=== PATIENT | male | born 1970 | race African-American/Black ===

== ENCOUNTER 2016-03-30 18:16 | Emergency (ER) | payer SELFPAY ==
[~2016-03-30] VITALS: Ht 182.9 cm; Wt 120.0 kg
[~2016-03-30 18:16] MED LIST: ASPI325T PO; HYDR12.56 PO; LISI2.5T3 PO; NOVO7030P2 SQ
[2016-03-30 18:19] VITALS: BP 219/104; PULSE 86; RESP 20; TEMP 98.2; O2SAT 96
[2016-03-30] MEDS ORDERED: SODIUM CHLOR 0.9% 1000 ML INJ 1,000 ML IV SCH ×2 (18:44→20:39)
[2016-03-30] MEDS ORDERED: ENALAPRILAT 2.5 MG/2 ML VIAL IV PUSH ONE (18:45)
--- NOTE | 2016-03-30 18:48 | PD ---
HPI Chief Complaint: Diabetic Time Seen by Provider: 18:38 Travel History International Travel<30 days: No Contact w/Intl Traveler<30days: No Traveled to known affect area: No History of Present Illness HPI 46-year-old male with history of insulin-dependent diabetes, hypertension who presents for evaluation of hyperglycemia. The patient reports that he got out of 5 year stay in [place] [facility] in November 2015. Was given a 60 day supply of his 70/30 insulin which he ran out of 2 months ago. He was unable to afford a refill. He reports a blood sugar reading that has progressively worsened over the course of the past 2 months. Initially his blood sugar readings were in the 200 -300 range. It is crampy in the 400-500 range over the past several days. He is experiencing blurred vision since yesterday. He is experiencing polyuria, polydipsia and polyphagia. Denies any headache, chest pain, shortness of breath , abdominal pain, nausea, vomiting, fevers, chills. He has attempted to establish care with a primary care physician as outpatient but he doesn't have any insurance. He has also been attempting to stretch out his blood pressure medications typically taking them every other day because he is about to run out. He has no other complaints. 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) Cancer: No Cardiovascular Problems: No High Cholesterol: No Chemotherapy: No Chest Pain: No Congestive Heart Failure: No COPD: No Cerebrovascular Accident: No Diabetes: Yes Diminished Hearing: No GERD: No Glaucoma: No Genitourinary: No Headaches: Yes (MIGRAINE HEADACHES) Hepatitis: No Hiatal Hernia: No Hypertension: Yes Kidney Stones: No Musculoskeletal: No Neurologic: No Psychiatric: No Reproductive: No Respiratory: No Migraines: No Myocardial Infarction: No Radiation Therapy: No Renal Failure: No Seizures: No Sickle Cell Disease: No Sleep Apnea: No Thyroid Disease: No Ulcer: No PNEUMOCCOCAL Vaccine (Year): 2 Past Surgical History Abdominal Surgery: No AICD: No Appendectomy: No Arteriovenous Shunt: No Cardiac Surgery: No Ear Surgery: No Endocrine Surgery: No Eye Surgery: No Genitourinary Surgery: No Gynecologic Surgery: No Insulin Pump: No Joint Replacement: No Oral Surgery: No Pacemaker: No Thoracic Surgery: No Social History Alcohol Use: No Tobacco Use: Yes (5 CIGARS/DAY) Substance Use: Yes (SMOKED CRACK ALL DAY) Allergies-Medications (Allergen,Severity, Reaction): Coded Allergies: No Known Allergies (Verified , 08/17/11) Reported Meds & Prescriptions Reported Meds & Active Scripts Active Hydrochlorothiazide 25 Mg Tab 25 Mg PO DAILY Lisinopril 10 Mg Tab 10 Mg PO DAILY Metformin (Metformin HCl) 500 Mg Tab 500 Mg PO BIDPC 30 Days With meals Reported Novolin 70-30 Inj (Insulin Human Isoph/Insulin Regular) 1,000 Unit/10 Ml Vial 1 Units SQ Lisinopril 10 Mg Tab 10 Mg PO DAILY Aspirin 325 Mg Tab 325 Mg PO DAILY Review of Systems Except as stated in HPI: all other systems reviewed are Neg Physical Exam Narrative GENERAL: Well-developed well-nourished male in no acute distress SKIN: Warm and dry. HEAD: Atraumatic. Normocephalic. EYES: Pupils equal and round. No scleral icterus. No injection or drainage. Unable to visualize the optic disc bilaterally. ENT: No nasal bleeding or discharge. Mucous membranes pink and moist. NECK: Trachea midline. No JVD. CARDIOVASCULAR: Regular rate and rhythm. No murmur appreciated. RESPIRATORY: No accessory muscle use. Clear to auscultation. Breath sounds equal bilaterally. GASTROINTESTINAL: Abdomen soft, non-tender, nondistended. Hepatic and splenic margins not palpable. MUSCULOSKELETAL: No obvious deformities. No edema. NEUROLOGICAL: Awake and alert. No obvious cranial nerve deficits. Motor grossly within normal limits. Normal speech. PSYCHIATRIC: Appropriate mood and affect; insight and judgment normal. Data Data Last Documented VS Vital Signs Date Time Temp Pulse Resp B/P Pulse Ox O2 Delivery O2 Flow Rate FiO2 03/30/16 19:27 160/87 03/30/16 18:19 98.2 86 20 96 Room Air Orders Complete Blood Count With Diff (03/30/16 18:44) Basic Metabolic Panel (Bmp) (03/30/16 18:44) Enalaprilat Inj (Vasotec Inj) (03/30/16 18:45) Beta Hydroxybutyrate (Acetone) (03/30/16 18:44) Urinalysis - C+S If Indicated (03/30/16 18:44) Sodium Chlor 0.9% 1000 Ml Inj (Ns 1000 M (03/30/16 18:44) Insulin Human Regular Inj (Novolin R Inj (03/30/16 19:45) Sodium Chlor 0.9% 1000 Ml Inj (Ns 1000 M (03/30/16 20:39) Basic Metabolic Panel (Bmp) (03/30/16 21:27) Labs Laboratory Tests Test 03/30/16 03/30/16 18:45 21:45 White Blood Count 8.6 TH/MM3 Red Blood Count 5.73 MIL/MM3 Hemoglobin 14.5 GM/DL Hematocrit 45.8 % Mean Corpuscular Volume 79.9 FL Mean Corpuscular Hemoglobin 25.3 PG Mean Corpuscular Hemoglobin 31.7 % Concent Red Cell Distribution Width 15.2 % Platelet Count 195 TH/MM3 Mean Platelet Volume 9.4 FL Neutrophils (%) (Auto) 58.9 % Lymphocytes (%) (Auto) 34.9 % Monocytes (%) (Auto) 4.0 % Eosinophils (%) (Auto) 1.8 % Basophils (%) (Auto) 0.4 % Neutrophils # (Auto) 5.0 TH/MM3 Lymphocytes # (Auto) 3.0 TH/MM3 Monocytes # (Auto) 0.3 TH/MM3 Eosinophils # (Auto) 0.2 TH/MM3 Basophils # (Auto) 0.0 TH/MM3 CBC Comment DIFF FINAL Differential Comment Urine Color STRAW Urine Turbidity CLEAR Urine pH 7.0 Urine Specific [place] 1.022 Urine Protein NEG mg/dL Urine Glucose (UA) 1000 mg/dL Urine Ketones NEG mg/dL Urine Occult Blood TRACE Urine Nitrite NEG Urine Bilirubin NEG Urine Urobilinogen LESS THAN 2.0 MG/DL Urine Leukocyte Esterase NEG Urine RBC 3 /hpf Microscopic Urinalysis Comment CULT NOT INDICATED Sodium Level 132 MEQ/L 147 MEQ/L Potassium Level 4.9 MEQ/L 4.5 MEQ/L Chloride Level 93 MEQ/L 111 MEQ/L Carbon Dioxide Level 30.0 MEQ/L 29.8 MEQ/L Anion Gap 9 MEQ/L 6 MEQ/L Blood Urea Nitrogen 18 MG/DL 19 MG/DL Creatinine 1.84 MG/DL 1.32 MG/DL Estimat Glomerular Filtration 48 ML/MIN 70 ML/MIN Rate Random Glucose 719 MG/DL 155 MG/DL Calcium Level 9.2 MG/DL 8.2 MG/DL B-Hydroxybutyrate 0.11 MMOL/L [facility] Medical Decision Making Medical Screen Exam Complete: Yes Emergency Medical Condition: Yes Medical Record Reviewed: Yes Interpretation(s) CBC within normal limits Initial BMP BUN 18 creatinine 1.4 glucose 719 normal anion gap normal carbon dioxide Repeat BMP glucose 155, BUN 19, creatinine 1.32 Urinalysis 1000 glucose trace blood otherwise unremarkable Differential Diagnosis Hyperglycemia, DKA, dehydration, electrolyte abnormality Narrative Course 46-year-old male with hyperglycemia, hypertension presents with symptoms consistent with hyperglycemia after running out of his insulin 2 months ago. He is type II diabetic. Physical examination is reassuring. He is hypertensive. He was given a dose of IV enalapril as well as 2 L of IV fluids, insulin bolus with improvement of his blood sugar, blood pressure. No evidence of DKA. Unfortunately the patient cannot currently afford insulin. She also does not currently have a primary care physician. Financial counselor did come and talk to the patient about applying for patient assistance. The patient apparently has never tried any oral hyperglycemic medication as he was started on insulin originally several years ago. Because he cannot currently afford insulin he will be started on metformin. He understands that this was not controlling his blood sugar and he has to follow up with primary care physician as soon as possible and he plans on reaching out to the patient assistance program as soon as possible. He also be given refills of his blood pressure medications. He is stable for discharge. Diagnosis Primary Impression: Hyperglycemia Additional Impression: Hypertension Qualified Code: I10 - Essential hypertension Additional Instructions: Medication as prescribed. Continue to monitor blood sugar on a daily basis he turned will be records. Continue to attempt weight loss with diabetic diet, exercise. Follow-up as soon as possible with your primary care physician as needed further treatment for your diabetes and your hypertension. Return for any emergent medical conditions. Med/Other Pt SpecificInfo: Prescription(s) given Scripts Hydrochlorothiazide 25 Mg Tab25 Mg PO DAILY #30 TAB Ref 0 Prov:Hamida Salmeron MD 03/30/16 Lisinopril 10 Mg Tab10 Mg PO DAILY #30 TAB Ref 0 Prov:Hamida Salmeron MD 03/30/16 Metformin 500 Mg Qni225 Mg PO BIDPC 30 Days Ref 0 With meals Prov:Hamida Salmeron MD 03/30/16 Disposition: DISCHARGE HOME Condition: Stable Rufino Rodriguez Mar 30, 2016 18:48
[2016-03-30 19:27] VITALS: BP 160/87
[2016-03-30 19:35] LABS: BLOOD, URINE TRACE (NEG); GLUCOSE,URINE 1000 mg/dL (NEG); KETONE, URINE NEG (NEG); NITRITE,URINE NEG (NEG)
[2016-03-30 19:36] LABS: COMMENT (UR) CULT NOT INDICATED; CULTURE IF INDICATED CULT NOT INDICATED; URINE COLOR STRAW (YELLW/STRAW)
--- NOTE | 2016-03-30 19:38 | PD ---
Physical Exam Narrative I, Dr. Salmeron, have reviewed the advance practice practitioner's documentation and am in agreement, met with the patient face to face, made the diagnosis, and the medical decision making was done by me. *My assessment and Findings: Patient is a 46 year old male with history of hypertension and DM who comes in because he is out of his medications. He complains of dry mouth and urinary frequency. He denies any chest pain or SOB. Exam shows heart RRR, lungs CTA. Neurologically intact. Data Data Last Documented VS Vital Signs Date Time Temp Pulse Resp B/P Pulse Ox O2 Delivery O2 Flow Rate FiO2 03/30/16 19:27 160/87 03/30/16 18:19 98.2 86 20 96 Room Air Orders Complete Blood Count With Diff (03/30/16 18:44) Basic Metabolic Panel (Bmp) (03/30/16 18:44) Enalaprilat Inj (Vasotec Inj) (03/30/16 18:45) Beta Hydroxybutyrate (Acetone) (03/30/16 18:44) Urinalysis - C+S If Indicated (03/30/16 18:44) Sodium Chlor 0.9% 1000 Ml Inj (Ns 1000 M (03/30/16 18:44) Insulin Human Regular Inj (Novolin R Inj (03/30/16 19:45) Sodium Chlor 0.9% 1000 Ml Inj (Ns 1000 M (03/30/16 20:39) Basic Metabolic Panel (Bmp) (03/30/16 21:27) Labs Laboratory Tests Test 03/30/16 03/30/16 18:45 21:45 White Blood Count 8.6 TH/MM3 Red Blood Count 5.73 MIL/MM3 Hemoglobin 14.5 GM/DL Hematocrit 45.8 % Mean Corpuscular Volume 79.9 FL Mean Corpuscular Hemoglobin 25.3 PG Mean Corpuscular Hemoglobin 31.7 % Concent Red Cell Distribution Width 15.2 % Platelet Count 195 TH/MM3 Mean Platelet Volume 9.4 FL Neutrophils (%) (Auto) 58.9 % Lymphocytes (%) (Auto) 34.9 % Monocytes (%) (Auto) 4.0 % Eosinophils (%) (Auto) 1.8 % Basophils (%) (Auto) 0.4 % Neutrophils # (Auto) 5.0 TH/MM3 Lymphocytes # (Auto) 3.0 TH/MM3 Monocytes # (Auto) 0.3 TH/MM3 Eosinophils # (Auto) 0.2 TH/MM3 Basophils # (Auto) 0.0 TH/MM3 CBC Comment DIFF FINAL Differential Comment Urine Color STRAW Urine Turbidity CLEAR Urine pH 7.0 Urine Specific [place] 1.022 Urine Protein NEG mg/dL Urine Glucose (UA) 1000 mg/dL Urine Ketones NEG mg/dL Urine Occult Blood TRACE Urine Nitrite NEG Urine Bilirubin NEG Urine Urobilinogen LESS THAN 2.0 MG/DL Urine Leukocyte Esterase NEG Urine RBC 3 /hpf Microscopic Urinalysis Comment CULT NOT INDICATED Sodium Level 132 MEQ/L 147 MEQ/L Potassium Level 4.9 MEQ/L 4.5 MEQ/L Chloride Level 93 MEQ/L 111 MEQ/L Carbon Dioxide Level 30.0 MEQ/L 29.8 MEQ/L Anion Gap 9 MEQ/L 6 MEQ/L Blood Urea Nitrogen 18 MG/DL 19 MG/DL Creatinine 1.84 MG/DL 1.32 MG/DL Estimat Glomerular Filtration 48 ML/MIN 70 ML/MIN Rate Random Glucose 719 MG/DL 155 MG/DL Calcium Level 9.2 MG/DL 8.2 MG/DL B-Hydroxybutyrate 0.11 MMOL/L [facility] Supervised Visit with KARO: Yes Narrative Course Patient given IVF, insulin, blood pressure medication. His glucose improved, blood pressure improved. Patient had no elevation in AG, no signs of DKA. He has no chest pain or cardiac complaints. Patient given information for patient assistance. Given prescriptions for his BP medications which are free at [facility]. Given a prescription for Metformin as this is also free at [facility]. Advised to fill out information for patient assistance and encouraged to follow up in the community clinic. Diagnosis Primary Impression: Hyperglycemia Additional Impression: Hypertension Qualified Code: I10 - Essential hypertension Scripts Hydrochlorothiazide 25 Mg Tab25 Mg PO DAILY #30 TAB Ref 0 Prov:Hamida Salmeron MD 03/30/16 Lisinopril 10 Mg Tab10 Mg PO DAILY #30 TAB Ref 0 Prov:Hamida Salmeron MD 03/30/16 Metformin 500 Mg Pvd800 Mg PO BIDPC 30 Days Ref 0 With meals Prov:Hamida Salmeron MD 03/30/16 Hamida Salmeron MD Mar 30, 2016 19:38
[2016-03-30 19:42] LABS: BASOPHIL % 0.4 % (0.0-2.0); EOSINOPHIL # 0.2 TH/MM3 (0-0.4); EOSINOPHIL % 1.8 % (0.0-4.0); HEMATOCRIT 45.8 % (39.0-51.0); HEMO FLAGS DIFF FINAL; LYMPH % 34.9 % (9.0-44.0); MEAN CELL VOLUME 79.9 FL (80.0-100.0); MEAN CORPUSCULAR HEMOGLOBIN 25.3 PG (27.0-34.0); MEAN CORPUSCULAR HGB CONC 31.7 % (32.0-36.0); NEUT % 58.9 % (16.0-70.0); PLATELET COUNT 195 TH/MM3 (150-450); RED BLOOD COUNT 5.73 MIL/MM3 (4.50-5.90); RED CELL DISTRIBUTION WIDTH 15.2 % (11.6-17.2); WHITE BLOOD COUNT 8.6 TH/MM3 (4.0-11.0)
[2016-03-30] MEDS ORDERED: INSULIN HUMAN REGULAR 1,000 UNITS/10 ML VIAL IV PUSH ONE (19:45)
[2016-03-30 19:50] LABS: BETA-HYDROXYBUTYRATE 0.11 MMOL/L (0.00-0.39); POTASSIUM 4.9 MEQ/L (3.5-5.1)
[2016-03-30] MEDS ORDERED: NOVO7030P2 SQ (21:28)
[2016-03-30] MEDS ORDERED: ASPI325T PO (21:28)
[2016-03-30] MEDS ORDERED: LISI10TA3 PO ×2 (21:28→22:50)
[2016-03-30 22:42] LABS: BICARBONATE 29.8 MEQ/L (21.0-32.0)
[2016-03-30 22:44] LABS: POTASSIUM 4.5 MEQ/L (3.5-5.1)
[2016-03-30] MEDS ORDERED: METF500T PO (22:50)
[2016-03-30] MEDS ORDERED: HYDR25TA5 PO (22:50)
== END 2016-03-30 23:38 | disposition home or self-care (01) ==
LOC: NEPC 18:16
DX: E11.65 Type 2 diabetes mellitus with hyperglycemia (principal); I10 Essential (primary) hypertension; F17.290 Nicotine dependence, other tobacco product, uncomplicated; F14.20 Cocaine dependence, uncomplicated; Z79.4 Long term (current) use of insulin
CPT/HCPCS: 80048; 81001; 82010; 85025; 96361; 96374; 96375; 99284; J1815; J7030